=== PATIENT | male | born 1960 | race Caucasian/White ===

== ENCOUNTER 2022-11-14 18:43 | Emergency (ER) | payer SELFPAY ==
[2022-11-14] MEDS ORDERED: Lorazepam 1 MG TAB ONE (19:15)
== END 2022-11-14 19:18 | disposition home or self-care (01) ==
LOC: CSHERS 18:43
DX: F10.129 Alcohol abuse with intoxication, unspecified (principal); F17.210 Nicotine dependence, cigarettes, uncomplicated
CPT/HCPCS: 99283